=== PATIENT | female | born 1985 | race Two or more races ===

== ENCOUNTER 2025-02-05 15:23 | Emergency (ER) | payer MEDICAID, OTHER ==
[~2025-02-05] VITALS: Ht 162.6 cm; Wt 57.9 kg
[2025-02-05 16:25] VITALS: BP 105/40; PULSE 88; RESP 18; TEMP 99; O2SAT 98
--- NOTE | 2025-02-05 16:49 | ED.PDOC ---
History of Present Illness(SKN HPI Comments [age] year old female presents for suture removals. No other complaint or concern. Denies any fevers chills nausea vomiting diarrhea. Denies any drainage from the affected side Chief Complaint: Wound Check Time Seen by MD: 15:56 History of Present Illness: Nurses Notes, Medications, Allergies Allergies: Coded Allergies: NO KNOWN ALLERGIES (Unverified , 02/05/25) Information Source: Patient Mode of Arrival: Ambulatory Past Medical History PAST MEDICAL HISTORY: Denies Family History Family History: Reviewed,noncontributory to illness Social History Smoker: Non-Smoker Alcohol: Denies ETOH Use Drugs: Denies Drug Use All Other Systems: Reviewed and Negative (Per HPI) Physical Exam General Appearance: No Apparent Distress, Normal HEENT: Normal ENT Inspection, Pharynx Normal, TMs Normal Neck: Full Range of Motion, Non-Tender, Normal, Normal Inspection Respiratory: Chest Non-Tender, Lungs Clear, No Accessory Muscle Use, No Respiratory Distress, Normal Breath Sounds Cardiovascular: No Murmur, No Gallop, Regular Rate/Rhythm Breast Exam: Deferred Gastrointestinal: No Organomegaly, Non Tender, No Pulsatile Mass, Normal Bowel Sounds, Soft Genitalia: Deferred Pelvic: Deferred Rectal: Deferred Extremities: No calf tenderness, Normal capillary refill, Normal inspection, Normal range of motion, Non-tender, No pedal edema Musculoskeletal : Apperance: Normal Neurologic: Alert, No Motor Deficits, Normal Affect, Normal Mood, No Sensory Deficits Cerebellar Function: Normal Reflexes: Normal Skin: Dry, Normal Color, Warm Lymphatic: No Adenopathy Was a procedure done? Was a procedure done?: No Differential Diagnosis (INTG) Differential Diagnosis: Other X-Ray, Labs, Meds, VS Vital Signs Date Time Temp Pulse Resp B/P (MAP) Pulse Ox O2 Delivery O2 Flow Rate FiO2 02/05/25 16:25 99.0 88 17 105/40 (61) 98 99.0 02/05/25 16:25 88 18 98 Room Air 02/05/25 15:53 99.0 88 13 105/40 (61) 98 99.0 X-Ray, Labs, Meds, VS Comment Suture Removal Alcohol swab used to clean area thoroughly. Used sterile suture removal kit Clean, dry, intact. No discharge seen. Education provided to keep area clean and dry. If gets soiled, use soap and water to clean. Watch out for signs and symptoms of infection including fever, chills, yellow or green discharge, increased pain, swelling etc. Time of 1ST Reevaluation: 16:39 Reevaluation 1ST: Improved Patient Education/Counseling: Diagnosis, Treatment Family Education/Counseling: Diagnosis, Treatment Departure 1 Departure Time of Disposition: 16:49 Impression: Primary Impression: Visit for suture removal Disposition: 01 HOME / SELF CARE / HOMELESS Condition: Stable Critical Care Note Critical Care Time?: No Stability Stability form required: No Heart Score Heart Score: Heart Score Response (Comments) Value History N/A 0 EKG N/A 0 Age N/A 0 Risk Factors N/A 0 Troponin N/A 0 Total 0 [facility] Feb 05, 2025 16:49
== END 2025-02-05 16:51 | disposition home or self-care (01) ==
LOC: ER 15:31
DX: Z48.02 Encounter for removal of sutures (principal)